=== PATIENT | male | born 1950 | race Caucasian/White ===

== ENCOUNTER 2018-07-21 10:56 | Outpatient (CLI) | payer MEDICARE ==
--- NOTE | 2018-07-21 11:36 | CT ---
CT OF THE ABDOMEN AND PELVIS WITH IV CONTRAST INDICATION: Abdominal distention and pelvic swelling; palpable lump at the umbilicus COMPARISON: None FINDINGS: ABDOMEN: Lung bases: Clear Liver: No focal lesion. Gallbladder: Normal appearing. Pancreas: Normal. Adrenal glands: Normal. Spleen: The spleen is enlarged measuring 14.3 cm Kidneys: Normal. Retroperitoneum of the upper abdomen: No lymphadenopathy or free fluid is identified. Pelvis: Small and large bowel: Normal Bladder: Normal. Rectal and perirectal soft tissues:Normal. Reproductive structures: The prostate is enlarged measuring 5.1 cm Free fluid in pelvis: No free fluid is evident. Lymphadenopathy pelvis: No lymphadenopathy is evident. Osseous structures: No acute osseous abnormality. No destructive osteolytic or osteoblastic lesion i s identified. There is scattered degenerative and osteoarthritic changes. There is a small fat-containing umbilicus hernia. There is an intramuscular lipoma involving the left latissimus dorsi measuring 3.7 cm. IMPRESSION: 1. Mild splenomegaly 2. Fat-containing umbilical hernia, small in size. 3. Prostate enlargement 4. Left latissimus dorsi intramuscular lipoma
== END 2018-07-21 10:57 | disposition home or self-care (01) ==
LOC: BICCT 10:56
PROVIDERS: ATTEND Internal Medicine
DX: R19.00 Intra-abdominal and pelvic swelling, mass and lump, unspecified site (principal); R16.1 Splenomegaly, not elsewhere classified; K42.9 Umbilical hernia without obstruction or gangrene; N40.0 Benign prostatic hyperplasia without lower urinary tract symptoms; D17.9 Benign lipomatous neoplasm, unspecified
CPT/HCPCS: 74177

== ENCOUNTER 2020-03-06 08:37 | Outpatient (CLI) | payer MEDICARE ==
--- NOTE | 2020-03-06 10:46 | ULT ---
ABDOMINAL AORTIC ULTRASOUND: HISTORY: Abdominal aortic aneurysm screening. FINDINGS: Real-time imaging of the aorta shows the proximal aorta to measure 3 cm AP dimension, mid 2.6, and di stal 1.8 cm. Iliac arteries are in the 1.1 cm range. IMPRESSION: No evidence of abdominal aortic aneurysm. POS: [facility]
== END 2020-03-06 08:38 | disposition home or self-care (01) ==
LOC: BICULT 08:37
PROVIDERS: ATTEND Internal Medicine
DX: Z13.6 Encounter for screening for cardiovascular disorders (principal)
CPT/HCPCS: 76775

== ENCOUNTER 2022-06-03 08:59 | Outpatient (CLI) | payer MEDICARE ==
[2022-06-03] MEDS ORDERED: Iopamidol 370 76% 100 ML VIAL ONE (12:36)
== END 2022-06-03 09:00 | disposition home or self-care (01) ==
LOC: BICCT 08:59
PROVIDERS: ATTEND Nurse Practitioner Adult Health
DX: R10.9 Unspecified abdominal pain (principal)
CPT/HCPCS: 74177; 82565; Q9967